=== PATIENT | male | born 1960 | race Caucasian/White ===

== ENCOUNTER → 2017-01-06 | Outpatient (REF) | payer OTHER ==
[~2017-01-06] MED LIST: ALBU8.5H2 IH; ALBU8.5H4 IH; AML5T PO; AMLO10TA4 PO; HYDR-3702 PO; NAPR500T8 PO; OXYC5CAP4 PO; TIOT4MIS5 IH
[2017-01-06 12:57] LABS: BASOPHILS % (AUTO) 1 % (0-2); EOSINOPHILS # (AUTO) 0.4 10^3uL; EOSINOPHILS % (AUTO) 6 % (0-4); MEAN CORPUSCULAR VOLUME 93 FL (80-100); MEAN PLATELET VOLUME 11.2 FL (6.0-9.5); MONOCYTES # (AUTO) 0.8 X10^3; MONOCYTES % (AUTO) 12 % (3-11); NEUTROPHILS # (AUTO) 3.5 X10^3; NEUTROPHILS % (AUTO) 52 % (51-67); PLATELET COUNT 205 10^3uL (150-450); WHITE BLOOD COUNT 6.72 10^3uL (4.0-11.0)
[2017-01-06 12:58] LABS: MEAN CORPUSCULAR HEMOGLOBIN 32.7 PG (26.0-34.0)
[2017-01-06 13:01] LABS: ALBUMIN 4.3 g/dL (3.4-5.0); ANION GAP 13.2 MEQ/L (3-15); CALCULATED IONIZED CALCIUM 3.9 mg/dL (3.8-4.6); TOTAL PROTEIN 7.7 g/dL (6.4-8.5)
== END ==
LOC: LAB 12:08
PROVIDERS: ATTEND Family Medicine
DX: R10.13 Epigastric pain (principal); R14.0 Abdominal distension (gaseous)
CPT/HCPCS: 80053; 83516; 83520; 85025; 86256

== ENCOUNTER → 2017-01-08 | Outpatient (CLI) | payer OTHER ==
[~2017-01-08] MED LIST changes: -ALBU8.5H2 IH; -OXYC5CAP4 PO; -TIOT4MIS5 IH
== END ==
LOC: LAB 14:09
PROVIDERS: ATTEND Family Medicine
DX: R10.13 Epigastric pain (principal); R14.0 Abdominal distension (gaseous)
CPT/HCPCS: 87507

== ENCOUNTER → 2017-01-09 | Outpatient (CLI) | payer OTHER ==
--- NOTE | 2017-01-09 15:52 | Diagnostic Imaging Report ---
PROCEDURE: CT abdomen and pelvis with and without contrast. TECHNIQUE: Precontrast acquisitions were acquired through the abdomen and pelvis. Multiple contiguous axial images were obtained through the abdomen and pelvis after the administration of intravenous contrast. INDICATION: Bloating and pain, fall. COMPARISON: The exam is interpreted in correlation with overlapped images from a chest CT 06/25/2016 and correlated with abdominal ultrasound of 08/11/2016. FINDINGS: There is a minute amount of low-density dependent pelvic free fluid of only a few mL. There were no findings at this study to suggest substantial ascites or a hemoperitoneum. There is trace scarring or subsegmental atelectasis in the right lung base. The lung bases otherwise are unremarkable. There is a fold in the gallbladder incidentally noted, no gallstone identified. The liver and spleen are negative. There is no evidence for hepatosplenic laceration or mass. The kidneys are unobstructed and well-perfused. No renal mass. There is no small or large bowel obstruction. There were no findings of mesenteric or bowel wall hematoma. There is no pneumatosis or free air. There is no mesenteric or retroperitoneal adenopathy. There is no mass. There are postoperative changes of posterior and interbody lumbar fusion. No acute osseous abnormality. No demonstrated fracture. IMPRESSION: Trace pelvic free fluid without findings of hemoperitoneum. No evidence for solid or hollow visceral injury and no fracture identified. No obstructive phenomena, inflammatory process or acute abnormalities. Dictated by: Dictated on workstation # [id number]
== END ==
LOC: RAD 08:32
PROVIDERS: ATTEND Family Medicine
DX: R10.13 Epigastric pain (principal); R14.0 Abdominal distension (gaseous)
CPT/HCPCS: 74178; Q9967

== ENCOUNTER 2017-01-15 08:58 | Day surgery (SDC) | payer OTHER ==
[~2017-01-15] VITALS: Ht 188 cm; Wt 89.0 kg
[~2017-01-15 08:58] MED LIST changes: +ALBU8.5H2 IH; +LACTATED RINGERS 1,000 ML IV SCH; +LIDOCAINE 4% TOPICAL 4.5 ML SYR ONE; +OXYC5CAP4 PO; +SIMETHICONE 40 MG/0.6 ML (MYLICON DROPS) ORAL SYRINGE ONE; +SODIUM CHLORIDE FLUSH 3 ML SYR IV PRN; +TIOT4MIS5 IH
--- OUTSIDE RECORDS SUMMARY | 2017-01-15 09:02 | XMS REPORT | Continuity Of Care Document ---
Author Author [facility] Organization [facility] Address [address] [place] [address] Phone Care Team Providers Care Supervisor Paper Coating Name Role Phone ANCELMO KUO, J AD SVEN KUO, S CP ROXANNE KUO, J PP Results Lab Results Visit/Account #[id number] (July 03, 2016 11:46am - July 10, 2016 6:10pm) Test Result Date/Time 70167-1: COMPLETE BLOOD COUNT WITH DIFF WHITE BLOOD COUNT(4.0-11.0 10E3/UL) 10.4 10E3/UL July 04, 2016 6:03am RED BLOOD COUNT(4.50-5.90 10E6/UL) 5.19 10E6/UL July 04, 2016 6:03am HEMOGLOBIN(13.5-17.5 G/DL) 17.2 G/DL July 04, 2016 6:03am HEMATOCRIT(41.0-53.0 %) 49.3 % July 04, 2016 6:03am MEAN CORPUSCULAR VOLUME(82.0-100.0 FL) 95.0 FL July 04, 2016 6:03am 81450-8: MEAN CORPUSCULAR HEMOGLOBIN(26.0-34.0 PG) 33.1 PG July 04, 2016 6:03am MEAN CORPUSCULAR HGB CONC(31.5-36.5 G/DL) 34.9 G/DL July 04, 2016 6:03am RED CELL DISTRIBUTION WIDTH(11.5-14.5 %) 12.2 % July 04, 2016 6:03am 777-3: PLATELET COUNT(150-450 10E3/UL) 161 10E3/UL July 04, 2016 6:03am MEAN PLATELET VOLUME(8.2-12.4 FL) 10.8 FL July 04, 2016 6:03am 770-8: NEUTROPHILS % (AUTO)(40-70 %) 53 % July 04, 2016 6:03am LYMPHOCYTES % (AUTO)(15-45 %) 30 % July 04, 2016 6:03am 5905-5: MONOCYTES % (AUTO)(2-10 %) 11 % July 04, 2016 6:03am 713-8: EOSINOPHILS % (AUTO)(0-6 %) 4 % July 04, 2016 6:03am 706-2: BASOPHILS % (AUTO)(0-1 %) 1 % July 04, 2016 6:03am 94789-8: IMMATURE GRANS % (AUTO)(0-0 %) 1 % July 04, 2016 6:03am NUCLEATED RBCS (AUTO)(0-0 %) 0 % July 04, 2016 6:03am 751-8: NEUTROPHILS # (AUTO)(2.5-7.5 10E3/UL) 5.5 10E3/UL July 04, 2016 6:03am 12011-4: LYMPHOCYTES # (AUTO)(1.0-4.0 10E3/UL) 3.2 10E3/UL July 04, 2016 6:03am 742-7: MONOCYTES # (AUTO)(0.2-0.8 10E3/UL) 1.1 10E3/UL July 04, 2016 6:03am 711-2: EOSINOPHILS # (AUTO)(0.0-0.4 10E3/UL) 0.4 10E3/UL July 04, 2016 6:03am 704-7: BASOPHILS # (AUTO)(0.0-0.2 10E3/UL) 0.1 10E3/UL July 04, 2016 6:03am IMMATURE GRANS # (AUTO)(0.0-0.0 10E3/UL) 0.1 10E3/UL July 04, 2016 6:03am DIFF TYPE AUTOMATED July 04, 2016 6:03am 777-3: PLATELET COUNT 777-3: PLATELET COUNT(150-450 10E3/UL) 192 10E3/UL July 03, 2016 12:10pm 32474-8: PROTHROMBIN TIME WITH INR PROTHROMBIN TIME(12.1-14.0 SEC) 13.2 SEC July 03, 2016 12:10pm 55015-4: INR 1.00 Result Comments: INR reference interval applies to patients on anticoagulant therapy. Suggested INR therapeutic range for oral anticoagulant therapy: (Stabilized anticoagulated patients) Routine Therapy: 2.0 to 3.0 Recurrent Myocardial Infarction: 2.5 to 3.5 Mechanical Prosthetic Valves: 2.5 to 3.5 July 03, 2016 12:10pm PARTIAL THROMBOPLASTIN TIME PARTIAL THROMBOPLASTIN TIME(22.2-37.4 SEC) 30.0 SEC July 03, 2016 12:10pm BASIC METABOLIC PANEL GLUCOSE(70-110 MG/DL) 99 MG/DL July 04, 2016 6:03am BLOOD UREA NITROGEN(6-20 MG/DL) 9 MG/DL July 04, 2016 6:03am CREATININE(0.50-1.20 MG/DL) 0.81 MG/DL July 04, 2016 6:03am 42538-8: EST GLOMERULAR FILTRATION RATE(Greater than or equal to 60) Greater than or equal to 60 Result Comments: If the patient is of -Greek descent/extraction multiply the eGFR value by 1.212 to obtain the actual eGFR. >=60 mg/dL Normal 30-59 mg/dL Moderate Kidney Disease 15-29 mg/dL Severe Kidney Disease <15 mg/dL Kidney Failure July 04, 2016 6:03am BUN CREATININE RATIO(10.0-20.0 RATIO) 11.0 RATIO July 04, 2016 6:03am SODIUM(135-145 MMOL/L) 137 MMOL/L July 04, 2016 6:03am POTASSIUM(3.6-5.0 MMOL/L) 4.0 MMOL/L July 04, 2016 6:03am CHLORIDE(101-111 MMOL/L) 102 MMOL/L July 04, 2016 6:03am CO2(21-31 MMOL/L) 28 MMOL/L July 04, 2016 6:03am ANION GAP(8-18) 11 July 04, 2016 6:03am OSMO CALCULATED(270.0-290.0) 272.5 July 04, 2016 6:03am CALCIUM(8.5-10.5 MG/DL) 8.9 MG/DL July 04, 2016 6:03am Allergies and Adverse Reactions Allergies and Adverse Reactions Patient Unit Number: [id number] Agent Type Reaction Severity Status NO KNOWN DRUG ALLERGIES Drug Allergy Unknown Unknown Active Problem List Problem List Visit/Account #[id number] (July 03, 2016 11:46am - July 10, 2016 6:10pm) Chronic Problems: Code/Condition Comments Documented Start Date Documented Resolved Date Code (s) Tobacco abuse ICD10: Z72.0 Tobacco abuse ICD9: 305.1 Tobacco abuse SNOMED: 04653523 Tobacco abuse 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 Pulmonary granuloma SNOMED: 76997298 Pulmonary granuloma Hemochromatosis ICD10: E83.119 Hemochromatosis ICD9: 275.03 Hemochromatosis SNOMED: 307986939 Hemochromatosis Resolved Problems: Pneumothorax after biopsy July 10, 2016 ICD10: J95.811 Pneumothorax after biopsy ICD9: 512.1 Pneumothorax after biopsy SNOMED: 97417628 Pneumothorax after biopsy Plan of Care Plan Of Care Visit/Account #[id number] (July 03, 2016 11:46am - July 10, 2016 6:10pm) Patient Instructions Instructions Biopsy Oxycodone Vital Signs Vital Signs Visit/Account #[id number] (July 03, 2016 11:46am - July 10, 2016 6:10pm) Sign First Result Last Result Code(s) Blood Pressure 149/ 95 mm[Hg] On July 03, 2016 5:35pm 149/ 94 mm[Hg] On July 10, 2016 5:50pm 8480-6 BP Systolic Heart Rate/Pulse Pulse Rate (adult): 74 /min On July 03, 2016 5:35pm Pulse Rate (adult): 72 /min On July 10, 2016 5:50pm 8867-4 Heart Rate 8893-0 Pulse rate Respiratory Rate Respiratory Rate: 14 /min On July 03, 2016 5:35pm Respiratory Rate: 18 /min On July 10, 2016 5:50pm 9279-1 Respiratory rate Temperature in Fahrenheit Temperature (Fahrenheit): 98.6 [degF] On July 03, 2016 5:35pm Temperature (Fahrenheit): 98.9 [degF] On July 10, 2016 5:50pm 8310-5 Body Temperature Functional Status Functional and Cognitive Status No Functional Status Data Medications Home Medications - Medications that the patient was taking prior to arrival at the hospital Visit/Account #[id number] (July 03, 2016 11:46am - July 10, 2016 6:10pm) Medication Route Sig/Schedule Precondition/Indication Comments/ Instructions Codes OXYCODONE HCL(OxyCODONE) 5 MG TABLET Dose: 5 MG ORAL Q4H PAIN Oxycodone Hydrochloride 5 MG Oral Tablet (RxNorm): 5073892 OXYCODONE HCL (OxyCODONE) NDC: 01900433601 ASPIRIN(ASPIRIN) 325 MG TABLET.DR Dose: 325 MG ORAL DAILY Aspirin 325 MG Delayed Release Oral Tablet (RxNorm): 125312 ASPIRIN (ASPIRIN) NDC: 08888136546 PROAIR HFA(ALBUTEROL SULF) 8.5 GM PUFF Dose: 2 PUFF INHALED DIRECTED 200 ACTUAT Albuterol 0.09 MG/ACTUAT Metered Dose Inhaler [Proventil] (RxNorm) : 517766 PROAIR HFA (ALBUTEROL SULF) NDC: 80522875423 Arnuity Ellipta(FLUTICASONE FUROATE) 100 MCG BLST.W.DEV Dose: 100 MCG INHALATION DAILY Arnuity Ellipta (FLUTICASONE FUROATE) NDC: 19542635838 Inpatient/Ordered Medications - Medications administered during hospital visit Visit/Account #[id number] (July 03, 2016 11:46am - July 10, 2016 6:10pm) Medication Route Sig/Schedule Precondition/Indication Comments/ Instructions Codes NORCO 5-325(HYDROcodone BIT/ACETAMINOPHEN) 1 TAB TAB Dose: 0 TAB ORAL Q4H PRN Reason: MODERATE TO SEVERE PAIN Label Comments: max of 4000 mg acetaminophen per 24 hours Special Dose Instructions: 1-2 TABS Acetaminophen 325 MG / Hydrocodone Bitartrate 5 MG Oral Tablet (RxNorm): 028435 NORCO 5-325 (HYDROcodone BIT/ACETAMINOPHEN) NDC: 25430048883 NICODERM 21 MG PATCH(NICOTINE) 1 PATCH PATCH Dose: 1 PATCH TOPICALLY DAILY Label Comments: WEAR GLOVES FOR HANDLING OR WASH HANDS AFTER HANDLING. 24 HR Nicotine 0.875 MG/HR Transdermal Patch (RxNorm): 114042 NICODERM 21 MG PATCH (NICOTINE) NDC: 44098407180 ROBITUSSIN SF LIQD(GuaiFENesin) 200 MG/10 ML LIQUID Dose: 5 ML ORAL Q4H PRN Reason: COUGH Guaifenesin 20 MG/ML Oral Solution (RxNorm): 625600 ROBITUSSIN SF LIQD (GuaiFENesin) NDC: 43196440902 TUMS(CALCIUM CARBONATE) 500 MG TAB Dose: 0 MG ORAL EVERY 6 HOURS PRN Reason: INDIGESTION Label Comments: TAKE WITH FOOD Special Dose Instructions: . Calcium Carbonate 500 MG Chewable Tablet (RxNorm): 299784 TUMS (CALCIUM CARBONATE) NDC: 86579331806 PROTONIX(PANTOPRAZOLE SOD) 40 MG TAB Dose: 40 MG ORAL 60 MIN BEFORE BKFST pantoprazole 40 MG Delayed Release Oral Tablet [Protonix] (RxNorm): 495027 PROTONIX (PANTOPRAZOLE SOD) NDC: 69387806243 PERCOCET 5/325(OxyCODONE/ACETAMINOPHEN) 1 TAB TAB Dose: 0 TAB ORAL Q4H PRN Reason: MODERATE TO SEVERE PAIN Label Comments: MAX REC DOSE ACETAMINOPHEN: 4000MG/24HRS MAY INCREASE FALL RISK Special Dose Instructions: . Acetaminophen 325 MG / Oxycodone Hydrochloride 5 MG Oral Tablet (RxNorm): 1546409 PERCOCET 5/325 (OxyCODONE/ACETAMINOPHEN) NDC: 52347233538 XYLOCAINE 1% INJ(LIDOCAINE HCL) 500 MG/50 ML INJECTION Dose: 500 MG Route .[facility] Lidocaine Hydrochloride 10 MG/ML Injectable Solution (RxNorm): 6293226 XYLOCAINE 1% INJ (LIDOCAINE HCL) NDC: 44495076678 HEPARIN PF 5000 UNIT/0.5 ML SYRINGE Dose: 0.5 ML SUBCUTANEOUSLY EVERY 8 HOURS 0.5 ML heparin sodium, porcine 38259 UNT/ML Cartridge (RxNorm): 2719518 (HEPARIN PF) NDC: 22296707248 NICODERM 21 MG PATCH(NICOTINE) 1 PATCH PATCH Dose: 1 PATCH TOPICALLY DAILY Label Comments: WEAR GLOVES FOR HANDLING OR WASH HANDS AFTER HANDLING. 24 HR Nicotine 0.875 MG/HR Transdermal Patch (RxNorm): 984519 NICODERM 21 MG PATCH (NICOTINE) NDC: 81242021274 Discharge Medications - Medications that patient should continue to take. Review with physician Visit/Account #[id number] (July 03, 2016 11:46am - July 10, 2016 6:10pm) Medication Route Sig/Schedule Precondition/Indication Comments/ Instructions Codes OXYCODONE HCL(OxyCODONE) 5 MG TABLET Dose: 5 MG ORAL Q4H PAIN Oxycodone Hydrochloride 5 MG Oral Tablet (RxNorm): 0143248 OXYCODONE HCL (OxyCODONE) NDC: 31410718885 ASPIRIN(ASPIRIN) 325 MG TABLET.DR Dose: 325 MG ORAL DAILY Aspirin 325 MG Delayed Release Oral Tablet (RxNorm): 363026 ASPIRIN (ASPIRIN) NDC: 57495334769 PROAIR HFA(ALBUTEROL SULF) 8.5 GM PUFF Dose: 2 PUFF INHALED DIRECTED 200 ACTUAT Albuterol 0.09 MG/ACTUAT Metered Dose Inhaler [Proventil] (RxNorm) : 087466 PROAIR HFA (ALBUTEROL SULF) NDC: 17797050366 Arnuity Ellipta(FLUTICASONE FUROATE) 100 MCG BLST.W.DEV Dose: 100 MCG INHALATION DAILY Arnuity Ellipta (FLUTICASONE FUROATE) NDC: 26465036790 OXYCODONE HCL(OxyCODONE) 5 MG TABLET Dose: 5 MG ORAL Q4H PAIN Oxycodone Hydrochloride 5 MG Oral Tablet (RxNorm): 8949845 OXYCODONE HCL (OxyCODONE) NDC: 55803718867 History Of Encounters Encounters Visit/Account #[id number] (July 03, 2016 11:46am - July 10, 2016 6:10pm) Account Status Physican Of Record Reason For Visit Visit Diagnosis Start Date/Time Stop Date/Time ORC BILL OLIVEIRA MD RT LUNG NODULE R91.1/Z01.812;PNEUMOTHORAX AFTER Not Available Jul 03, 2016 11:46am Jul 03, 2016 11:46am Anand BILL OLIVEIRA MD RT LUNG NODULE R91.1/Z01.812;PNEUMOTHORAX AFTER Not Available Jul 06, 2016 1:05pm Jul 10, 2016 6:10pm IN BILL OLIVEIRA MD RT LUNG NODULE R91.1/Z01.812;PNEUMOTHORAX AFTER Not Available Jul 06, 2016 1:05pm Jul 10, 2016 6:10pm History of Procedures Procedure List No procedures recorded. Discharge Instructions Discharge Instructions Visit/Account #[id number] (July 03, 2016 11:46am - July 10, 2016 6:10pm) DISCHARGE INSTRUCTIONS Physician Documentation PROVIDER INSTRUCTIONS Discharge Diet Regular Discharge Activity/Weight Bearing Status resume your usual diet Other Discharge Instructions see Radiology discharge instructions Discharge Diet Regular Discharge Activity/Weight Bearing Status resume your usual diet Other Discharge Instructions see Radiology discharge instructions Discharge Diet Regular Discharge Activity/Weight Bearing Status resume your usual diet Other Discharge Instructions see Radiology discharge instructions WOUND/INCISION/CATHETER CARE Incision/Wound Care Wash daily with soap and water Incision/Wound Care Wash daily with soap and water REASON TO CALL PROVIDER Notify Physician if: Questions or concerns Shortness of breath, fever, chills night sweats Notify Physician if: Questions or concerns Shortness of breath, fever, chills night sweats FOLLOW UP APPOINTMENTS Follow Up Appointment Date/Time: at Dr Carrizales office in 1 week: JUL 21 @ 1:[address] Richards (will be a new consult for Dr Richards) follow lung nodule- DR RICHARDS OFFICE WILL CONTACT PATIENT FOR APPT. 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 Follow Up Appointment Date/Time: at Dr Carrizales office in 1 week: JUL 21 @ 1:[address] Richards (will be a new consult for Dr Richards) follow lung nodule- DR RICHARDS OFFICE WILL CONTACT PATIENT FOR APPT. Questions or concerns call [phone] ask for cardiovascular surgeon caustic purification operator. Social History Social History No Social History Data. Immunizations Immunizations Patient Unit Number: [id number] Immunizations No immunizations recorded.
[2017-01-15 09:10] VITALS: BP 149/101
[2017-01-15] MEDS ORDERED: MIDAZOLAM 2 MG/2 ML (VERSED) VIAL ONE (09:24)
[2017-01-15] MEDS ORDERED: ALFENTANIL 500 MCG/ML (ALFENTA) 5 ML AMP IV ONE (09:24)
[2017-01-15] MEDS ORDERED: PROPOFOL 20 ML IV ONE ×2 (09:24)
[2017-01-15 10:37] VITALS: BP 141/102
[2017-01-15 11:00] VITALS: BP 153/103
--- NOTE | 2017-01-15 12:43 | OPERATIVE REPORT ---
DATE OF OPERATION: 01/15/2017 PRE-OPERATIVE DIAGNOSIS: Epigastric abdominal pain, bloating and diarrhea POST-OPERATIVE DIAGNOSIS: 1. Mild reflux esophagitis. 2. Normal colonoscopy. OPERATIVE PROCEDURE: 1. Esophagogastroduodenoscopy with biopsies. 2. Total colonoscopy. SURGEON: Anmol Mcgovern MD ANESTHESIA: Monitored anesthesia care FINDINGS: 1. There was some mild eccentricity of the squamocolumnar junction between the esophagus and stomach. No ulcers, neoplasia or severe inflammation were seen. 2. The gastric and duodenal mucosa appeared normal throughout. Biopsies were obtained from the antrum and from the second portion of the duodenum. 3. The bowel prep was excellent. 4. No angiodysplasia, inflammation, neoplasia or diverticula were seen in the colon or rectum. INDICATION: The patient is a 56-year-old referred for endoscopy with recent abdominal bloating and never having been screened for colon polyps. He has been experiencing epigastric pain and diarrhea off and on, and upper endoscopy was recommended along with screening. DESCRIPTION OF PROCEDURE: The patient was informed of the risks and benefits and agreed to proceed. His oropharynx was anesthetized with Xylocaine and a bite block was placed. Sedation was administered. The lighted endoscope was passed down the esophagus and into the stomach. Air was insufflated. The pylorus was cannulated and the first, second and third portions of the duodenum were visualized. No inflammation, ulcers or neoplasia were seen. Biopsies were obtained from the second portion for ruling out celiac disease. The scope was brought back into the antrum where the antrum, body and fundus were carefully inspected. No inflammation or ulcers were seen there. I did biopsy from the antrum for ARMIDA and histology. Retroflexion revealed a normal gastric cardia. The diaphragmatic hiatus was seen at approximately 44 cm with the squamocolumnar junction at 42 cm. The distal and proximal esophagus appeared normal, except for the mild inflammatory changes at the GE junction. The scope was removed completing this portion of the procedure. Attention was then turned to the colonoscopy. The patient was placed in the left lateral decubitus position. A digital rectal exam was performed, which was normal. The lighted endoscope was passed into the rectum and slowly advanced along the colon to the cecum. The ileocecal valve and the appendiceal orifice were easily seen. The scope was slowly brought back through the ascending, transverse, descending, and sigmoid colon. No polyps or neoplasia were noted. The rectum appeared normal on regular view and retroflexion. The scope was removed completing the procedure. The patient tolerated the procedure without complications. I recommend a repeat screening colonoscopy in 10 years.
== END 2017-01-15 11:05 | disposition home or self-care (01) ==
LOC: ASC 08:58
PROVIDERS: ATTEND Surgery
DX: K29.80 Duodenitis without bleeding (principal); K29.30 Chronic superficial gastritis without bleeding; K21.0 Gastro-esophageal reflux disease with esophagitis; F41.9 Anxiety disorder, unspecified; F32.9 Major depressive disorder, single episode, unspecified; J44.9 Chronic obstructive pulmonary disease, unspecified; F17.200 Nicotine dependence, unspecified, uncomplicated; Z79.899 Other long term (current) drug therapy; Z79.82 Long term (current) use of aspirin; Z87.01 Personal history of pneumonia (recurrent)
CPT/HCPCS: 43239; 45378; J2250; J7120; 87077